=== PATIENT | female | born 1990 | race Caucasian/White ===

== ENCOUNTER 2016-02-21 16:12 | Emergency (ER) | payer MEDICAID, OTHER ==
[~2016-02-21] VITALS: Ht 165.1 cm; Wt 117.9 kg
[2016-02-21 16:58] LABS: Basophils # (auto) 0 uL; Basophils % (auto) 0.3 % (0.0-2.0); DEFINITIVE VIEW TRANSMISSION; Eosinophils # (auto) 0.1 uL; Eosinophils % (auto) 0.6 % (0.0-7.0); Hematocrit 41.9 % (36.0-46.0); Hemoglobin 13.5 g/dL (12.2-16.2); Lymphocytes # (auto) 1.9 uL; Lymphocytes % (auto) 15.1 % (10.0-50.0); Mean Corpuscular Hemoglobin 25.6 pg (28.0-32.0); Mean Corpuscular Hgb Conc. 32.3 g/dL (32.0-36.0); Mean Corpuscular Volume 79.2 fL (80.0-100.0); Mean Platelet Volume 9.4 fL (7.4-10.4); Monocytes # (auto) 0.5 uL; Monocytes % (auto) 4.1 % (0.0-12.0); Neutrophils # (auto) 10.3 uL; Neutrophils % (auto) 79.9 % (37.0-80.0); Platelet Count (auto) 309 10^3/uL (140-450); Red Cell Distribution Width 15.7 % (11.6-16.0); White Blood Cell 12.9 10^3/uL (4.4-10.8)
[2016-02-21 17:17] LABS: Albumin 3.6 g/dL (3.4-5.0); BUN/Creatinine Ratio 16.3; Calcium 8.4 mg/dL (8.5-10.1)
[2016-02-21 17:19] LABS: Bilirubin, Total 0.2 mg/dL (0.2-1.0); Total Protein 8.2 g/dL (6.4-8.2)
[2016-02-21] MEDS ORDERED: NALBUPHINE HCL 10 MG/1ml INJECTION IM ONE (18:45)
[2016-02-21] MEDS ORDERED: ONDANSETRON ODT 4 MG TAB PO ONE (18:45)
[2016-02-21 19:16] LABS: Urine Bilirubin Negative (Negative); Urine Blood Negative /uL (Negative); Urine Color Yellow (Yellow); Urine Glucose Normal (Normal); Urine Mucus FEW (None Seen); Urine Nitrite Negative (Negative); Urine RBC 1 /hpf (0 - 4); Urine Squamous Epithelial Cell FEW /hpf (<5); Urine Urobilinogen Normal (Negative); Urine pH 5.5 (5.0-8.0)
[2016-02-21 19:22] LABS: Urine Ketone 2+ (Negative)
[2016-02-21 20:45] VITALS: BP 141/78
== END 2016-02-21 21:13 | disposition home or self-care (01) ==
LOC: ER 16:21
DX: M06.9 Rheumatoid arthritis, unspecified (principal); M79.7 Fibromyalgia
CPT/HCPCS: 36415; 73562; 80053; 81001; 81025; 85025; 96372; 99285; J2300; Q0162